=== PATIENT | female | born 1995 | race Caucasian/White ===

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

== ENCOUNTER 2018-05-23 14:45 | Emergency (ER) | payer OTHER ==
[2018-05-23] MEDS ORDERED: NS 1,000 ML IV ONE (14:51)
--- NOTE | 2018-05-23 14:51 | EDPHY ---
General - History Smoking Status: Never smoked Time Seen by Provider: 05/23/18 14:47 Narrative: CHIEF COMPLAINT: M1, suicidal HISTORY OF PRESENT ILLNESS: Patient presents by EMS on an M1 hold due to suicidal ideation and gesture. She reports that she is feeling depressed and "I got a little dramatic," and she describes taking 34 pills 200 mg Advil at 12:45 p.m. Today. She immediately felt worse for this and contacted her boyfriend who took her to [facility] for evaluation. A psychiatrist there placed her on an M1 hold and sent her here for clearance evaluation. She states that she still feels remorseful this and does not want to . She admits to feeling this way earlier. She has history of depression anxiety and attention deficit hyperactivity disorder and takes medication for this but has no formal Psychiatry or therapy for this. She denies previous suicide attempt. No other associated complaints or modifying factors. PSYCHIATRIC DIAGNOSES: Depression, anxiety, attention deficit hyperactivity disorder PRIOR PSYCHIATRIC EVALUATIONS: None M1/DETAINER: Psychologist at [facility] [place], [facility] ([place], [place]) at 2:07 p.m. Today REVIEW OF SYSTEMS: Ten systems reviewed and are negative unless otherwise noted in the HPI EXAMINATION General Appearance: Alert, no distress. Well-appearing. Head: normocephalic, atraumatic Eyes: Pupils equal and round, no conjunctival pallor or injection ENT, Mouth: Mucous membranes moist Neck: Normal inspection, supple, non-tender Respiratory: Lungs are clear to auscultation Cardiovascular: Regular rate and rhythm Gastrointestinal: Abdomen is soft and nontender no tympany rigidity. Back: non-tender, no bony abnormalities Neurological: A&O, nonfocal, normal gait Skin: Warm and dry, no rash Extremities: Nontender, no pedal edema Psychiatric: Depressed mood and flat affect. Admits to feeling suicidal earlier today. Admits to pill ingestion with attempt to harm herself today. Denies suicidal ideation at this time. DIFFERENTIAL DIAGNOSES: Including but not limited to suicidal gesture, suicidal attempt, suicidal ideation, acute kidney injury MDM: 3:00 p.m. Suicidal gesture by ingestion of Advil 200 mg, 34 pills. This reportedly happened at 12:45 p.m. Today. She is asymptomatic from the pill ingestion. She still feels depressed but no longer feels suicidal. She says that she request the suture but realizes that she needs some help with her symptoms. She is cooperative. She arrives on an M1 hold from [facility] [place]. Laboratory studies been drawn. Urine sample pending. I discussed the case with poison Control and started a new case. 3:10 p.m. I discussed the case with poison Control. They recommend acetaminophen, salicylate levels, liver function test at 4 hr post ingestion. This will require repeat lab test at 4:45 p.m.. Laboratory studies thus far are normal. Urine drug screen pending per 4:00 p.m. Case discussed with Dr. Brizuela. He will assume care the patient and there are pending laboratory studies at 4:45 p.m. Today. If these laboratory studies are normal, she will be medically cleared at that time for evaluation. SUPERVISION: Patient was independently examined, but I discussed the case with my secondary supervising physician Dr. Brizuela Consultation: Point control. Case discussed with BYRON Gardner. (Zan Guallpa ) Medical Decision Making: PHYSICIAN DOCUMENTATION: The patient was evaluated and managed by the Physician Diesel Pile Hammer Operator and myself. I have reviewed the chart and agree with the findings and plan of care as documented. In addition, I examined the patient myself at 181. History confirmed as suicidal ideation, taking pills. Physical findings as follows: Alert, conversant. Labs reviewed, medically cleared at this time for psychiatric evaluation; 1809. She has no symptoms at this time. Specifically she does not have nausea vomiting or abdominal pain. She just went to the bathroom, normal urination. She denies suicidal ideation at this time. Normal mental status. Signed out to [place] with psychiatric evaluation pending. I am the secondary supervising physician. (Edis Brizuela) 0542: Patient has been accepted at [facility] by Dr. Craig. Appropriate transfer and EMTALA will be filled out. (Tylor Smith) - Objective Vital Signs: Initial Vital Signs Temperature (C) 36.6 C 05/23/18 14:57 Heart Rate 95 05/23/18 14:57 Respiratory Rate 18 05/23/18 14:57 Blood Pressure 134/93 H 05/23/18 14:57 O2 Sat (%) 97 05/23/18 14:57 O2 Delivery Mode Room Air O2 (L/minute) 97 Allergies/Adverse Reactions: Penicillins Allergy (Verified 10/24/16 10:01) Home Medications: Medication Instructions Recorded Adderall 10 MG (*) 10/24/16 Laboratory Results: Laboratory Results 05/23/18 15:10 05/23/18 15:10 05/23/18 16:45 Total Bilirubin 0.7 mg/dL mg/dL (0.1-1.4) Conjugated Bilirubin 0.3 mg/dL mg/dL (0.0-0.5) Unconjugated Bilirubin 0.4 mg/dL mg/dL (0.0-1.1) AST 32 IU/L IU/L (14-46) ALT < 6 IU/L L IU/L (9-52) Alkaline Phosphatase 62 IU/L IU/L (38-126) Total Protein 6.8 g/dL g/dL (6.3-8.2) Albumin 3.6 g/dL g/dL (3.5-5.0) Salicylates < 1.0 mg/dL L mg/dL (2.0-20.0) Acetaminophen < 10 mcg/mL L mcg/mL (10-30) Medications Given: Discontinued Medications Sodium Chloride (Ns) 1,000 mls @ 0 mls/hr IV EDNOW ONE; Wide Open PRN Reason: Protocol Stop: 05/23/18 14:52 Last Admin: 05/23/18 15:27 Dose: 1,000 mls Departure - Departure Clinical Impression: Ibuprofen overdose Qualifiers: Encounter type: initial encounter Injury intent: intentional self-harm Qualified Code(s): T39.312A - Poisoning by propionic acid derivatives, intentional self-harm, initial encounter Condition: Good Instructions: Suicide Prevention (ED) Referrals: DEVANG Terry,. [Clinic] - As per Instructions
--- NOTE | 2018-05-23 15:25 | CPEKG ---
Test Reason : OPEN Blood Pressure : / mmHG Vent. Rate : 075 BPM Atrial Rate : 071 BPM P-R Int : 118 ms QRS Dur : 078 ms QT Int : 371 ms P-R-T Axes : 063 074 048 degrees QTc Int : 415 ms Sinus rhythm Probable left atrial enlargement Confirmed by Patricia Arevalo ([id number]) on 05/23/2018 3:24:49 PM Referred By: Confirmed By:Patricia Arevalo
[2018-05-23 15:28] LABS: PLATELET COUNT 306 10^3/uL (150-400)
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
--- NOTE | 2018-05-24 06:41 | ASMTTCLDSP ---
TLC Discharge Disposition Disposition: Answers: Transfer Disposition Notes: Notes: Transferred to [facility] as pt has [facility] insurance, [facility] not in network. Discharge Concerns/Recommendations: Notes: In consultation with [facility] ED physician, Tylor Smith MD and [facility] on-call psychiatrist, Moise Cheema MD, both concurred that pt appears to meet 27-65 criteria requiring psychiatric hospitalization as pt appears to be at risk of harm to self due to a mental illness condition. Was patient given the Answers: Not applicable Inpatient Behavioral Health Prohibited Belongings List while in the ED? Type of Hold: Answers: M1/72-hour Hold Hold initiated by: Answers: Other Notes: [place] clinician For Transfers, Accepting [facility] Facility: For Transfers, Accepting Gerardo Craig MD Psychiatrist: For Transfers, Reason [facility] pt - [facility] not in network. Patient is Being Transferred: Date Signed: 05/24/2018 06:40 AM Electronically Signed By:Jeovanny Cameron
[2018-05-24 07:57] VITALS: BP 117/65
== END 2018-05-24 08:45 ==
LOC: EDUNIT#
DX: T39.312A Poisoning by propionic acid derivatives, intentional self-harm, initial encounter (principal); F90.9 Attention-deficit hyperactivity disorder, unspecified type; F33.2 Major depressive disorder, recurrent severe without psychotic features
CPT/HCPCS: 80305; G0480